=== PATIENT | male | born 1955 | race Caucasian/White ===

== ENCOUNTER 2018-01-05 21:31 | Emergency (ER) | payer BC ==
[~2018-01-05] VITALS: Ht 162.6 cm; Wt 104.5 kg
[2018-01-05 21:34] VITALS: BP 164/76; TEMP 98.9
[2018-01-05] MEDS ORDERED: CRESTOR20 MG PO (21:46)
[2018-01-05] MEDS ORDERED: ZESTORETIC 12.51 TA1 PO (21:46)
[2018-01-05] MEDS ORDERED: PAXIL 20MG20 MG PO (21:47)
[2018-01-05] MEDS ORDERED: ASPIRIN 32325 MG/TAB PO (21:48)
[2018-01-05] MEDS ORDERED: FLEXERIL 1010 MG/TAB PO ×2 (21:48→23:11)
[2018-01-05] MEDS ORDERED: REQUIP 0.5MG0.5 MG PO (21:50)
[2018-01-05 22:33] LABS: BASO # 0.1 (0.0-0.2); BASO % 1.8 % (0.0-2.0); EOS # 0.1 (0.0-0.7); EOS % 1.3 % (0-4.0); GRAN % 63.9 % (42.2-75.2); HEMOGLOBIN 13.3 g/dl (13.5-18.0); LYMPH # 1.4 (1.2-3.4); MEAN CELL VOLUME 83 fl (80.0-100.0); MEAN CORPUSCULAR HEMOGLOBIN 26 pg (27.0-31.0); MEAN CORPUSCULAR HGB CONC 32 g/dl (33.0-37.0); MEAN PLATELET VOLUME 10.4 fl (7.4-10.4); MONO # 0.7 (0.1-0.6); MONO % 10.8 % (1.7-9.3); PLATELET COUNT 200 K/mm3 (130-400); RED BLOOD COUNT 5.04 M/mm3 (4.20-5.60); REDCELL DISTRIBUTION WIDTH-CV 14.6 % (11.5-14.5)
[2018-01-05 23:05] LABS: ALANINE AMINOTRANSFERASE 25 U/L (21-72); ALBUMIN 4.2 gm/dL (3.5-5.0); ALKALINE PHOSPHATASE 86 U/L (50-136); ANION GAP 14 mmol/L (7-16); AST,SGOT 25 U/L (15-37); BILIRUBIN,TOTAL 0.3 mg/dL (0.0-1.0); BLOOD UREA NITROGEN 10 mg/dL (9-20); CALCIUM 8.9 mg/dL (8.4-10.2); CARBON DIOXIDE 27 mmol/L (22-30); CHLORIDE 100 mmol/L (98-107); CREATININE, serum 0.61 mg/dL (0.66-1.25); GLUCOSE 164 mg/dL (74-106); POTASSIUM 3.7 mmol/L (3.4-5.0); SODIUM 141 mmol/L (137-145); TOTAL PROTEIN 7.3 gm/dL (6.4-8.2)
[2018-01-05 23:18] LABS: TROPONIN-I < 0.012 ng/mL (0.000-0.034)
[2018-01-05 23:42] VITALS: PULSE 92
== END 2018-01-05 23:42 | disposition home or self-care (01) ==
LOC: COL.ER 21:31
PROVIDERS: Emergency Medicine
DX: R26.9 Unspecified abnormalities of gait and mobility (principal); F80.9 Developmental disorder of speech and language, unspecified; E11.9 Type 2 diabetes mellitus without complications; I10 Essential (primary) hypertension; E66.9 Obesity, unspecified; E78.5 Hyperlipidemia, unspecified; Z79.82 Long term (current) use of aspirin; Z98.84 Bariatric surgery status; Z98.890 Other specified postprocedural states